=== PATIENT | female | born 1995 | race American Indian/Alaskan Native ===

== ENCOUNTER 2024-12-04 13:47 | Emergency (ER) | payer MEDICAID ==
[2024-12-04 14:21] LABS: BASOPHILS PERCENT AUTO 0.5 % (0.0-1.0); EOSINOPHILS PERCENT AUTO 4.3 % (1.0-3.0); LYMPHOCYTES PERCENT AUTO 26.2 % (20.5-50.1); MONOCYTES PERCENT AUTO 8.8 % (2-8); NEUTROPHILS PERCENT AUTO 60.2 % (42.2-75.2); PLATELET COUNT,PLT 351 10^3/uL (150-450); RED BLOOD CELL COUNT 4.25 10^6/uL (4.2-5.4); WHITE BLOOD CELL COUNT,WBC 6.6 10^3/uL (5.0-10.0)
[2024-12-04 14:35] LABS: INR 0.9 (0.9-1.2)
[2024-12-04 14:39] LABS: HCG QUALITATIVE,SERUM NEGATIVE (NEGATIVE)
[2024-12-04 14:41] LABS: ALANINE AMINOTRANSFERASE,ALT 181 U/L (14-59); ASPARTATE AMNIOTRANSFERASE,AST 147 U/L (15-37); BILIRUBIN TOTAL 0.6 mg/dL (0.2-1.0); BLOOD UREA NITROGEN,BUN 7 mg/dL (7-18); CARBON DIOXIDE,CO2 26 mmol/L (21-32); CHLORIDE,CL 102 mmol/L (98-107); CREATININE 0.71 mg/dL (0.55-1.02); EST CRCL DRUG DOSING (CG) 114.72 mL/min; GLUCOSE RANDOM 218 mg/dL (70-99); POTASSIUM,K 3.4 mmol/L (3.5-5.1); PROTEIN TOTAL,TP 7.0 g/dL (6.4-8.2); SODIUM,NA 138 mmol/L (136-145)
[2024-12-04 14:44] LABS: A/G RATIO 0.89; ESTIMATED GFR 119 mL/min (>=60)
[2024-12-04 14:48] LABS: D-DIMER QUANTITATIVE 432.0 ng/mL (0-400)
[2024-12-04] MEDS: Iopamidol 755 Mg/ML 100 ML Bottle IVPUSH ONE (14:57)
[2024-12-04] MEDS: Ondansetron 4 MG/2 ML SDV IVPUSH ONE (15:00)
[2024-12-04] MEDS: Sodium Chloride 0.9% 10 ML Syringe FLUSH PRN (15:01)
[2024-12-04] MEDS: Dexamethasone 4 MG/ML SDV IVPUSH ONE (15:14)
[2024-12-04] MEDS: diphenhydrAMINE 50 MG/ML SDV IVPUSH ONE (15:15)
[2024-12-04] MEDS: Ketorolac 30 MG/ML SDV IVPUSH ONE (15:15)
[2024-12-04] MEDS: Magnesium Sulfate 2 GM/50 mL 2 GM in Premix Bag 1 BAG IV ONE (15:16)
[2024-12-04] MEDS: Potassium Chloride 10 MEQ Tab.ER PO ONE (15:17)
[2024-12-04 16:25] VITALS: BP 161/104; PULSE 119
== END 2024-12-04 16:49 | disposition home or self-care (01) ==
LOC: DL.ED 13:47
DX: I16.0 Hypertensive urgency (principal); Z79.899 Other long term (current) drug therapy; Z91.041 Radiographic dye allergy status
CPT/HCPCS: 36415; 71275; 80053; 83735; 84484; 84703; 85025; 85379; 85610; 86140; 93005; 96365; 96375; 99285; A9270; J1100; J1200; J1885; J2405; J3475; Q9967